=== PATIENT | female | born 1980 | race Caucasian/White ===

== ENCOUNTER 2020-09-09 16:46 | Emergency (ER) | payer SELFPAY ==
--- NOTE | 2020-09-09 18:23 | EDPHYS ---
Physician Documentation [facility] Name: Yoanna Dyson Age: 40 yrs Sex: Female : 1980 Arrival Date: 09/09/2020 Time: 16:44 Bed 28 Private MD: DONTE Physician Tramaine Carvalho HPI: 09/09 17:55 This 40 yrs old Female presents to ER via Wheelchair with complaints of rn covid+. 17:55 The patient or guardian reports cough, difficulty breathing. Onset: The rn symptoms/episode began/occurred 1 week(s) ago. Severity of symptoms: At their worst the symptoms were moderate, in the emergency department the symptoms are unchanged. Modifying factors: The symptoms are alleviated by nothing, the symptoms are aggravated by nothing. Associated signs and symptoms: Pertinent negatives: chest pain, fever, vomiting. The patient has not experienced similar symptoms in the past. The patient has not recently seen a physician. Reports 1 to 2 weeks of feeling ill, multiple family members are Covid positive, G7, P6 at approximately 33 weeks by LMP, no care for this . Reports decreased movement over the last day or so. Seen in L\T\D today, Dr. Rothman called and states not in labor cervix closed and baby seems okay. Dr. Rothman recommends ER evaluation, Covid testing, and if Covid positive transfer to [facility] for Covid status and no care.. Historical: - Allergies: 17:39 No Known Allergies; kg - Home Meds: 17:39 None [Active]; kg - PMHx: 17:39 None; kg - PSHx: 17:39 None; kg - Immunization history:: Adult Immunizations up to date, Client reports having NOT received the Covid vaccine. - Social history:: Smoking status: . - Family history:: not pertinent. - Hospitalizations: : No recent hospitalization is reported. ROS: 17:55 Constitutional: Negative for chills, and weight loss Eyes: Negative for injury, pain, rn redness, and discharge, ENT: Negative for injury, pain, and discharge, Neck: Negative for injury, pain, and swelling, Cardiovascular: Negative for chest pain, palpitations, and edema, Respiratory: Positive for cough and shortness of breath Abdomen/GI: Negative for abdominal pain, nausea, vomiting, diarrhea, and constipation, Back: Negative for injury and pain, MS/Extremity: Negative for injury and deformity, Skin: Negative for injury, rash, and discoloration, Neuro: Negative for headache, numbness, tingling, and seizure. Exam: 17:55 Constitutional: This is a well developed, well nourished patient who is awake, alert, rn moderate tachypnea, appears weak in general Head/Face: Normocephalic, atraumatic. Eyes: Sunken eyes ENT: Dry mucous membranes, no stridor Cardiovascular: Tachycardic, regular.. No pulse deficits. Respiratory: Moderate tachypnea, diminished breath sounds bilateral bases. Abdomen/GI: Soft, nontender Skin: Warm, dry MS/ Extremity: Pulses equal, no cyanosis. Neurovascular intact. Full, normal range of motion. Equal circumference. Neuro: Awake and alert, GCS 15, oriented to person, place, time, and situation. Cranial nerves II-XII grossly intact. Motor strength 4/5 in all extremities. Sensory grossly intact. Vital Signs: 17:29 BP 129 / 86; Pulse 99; Resp 39; Temp 98.2(O); Pulse Ox 89% on R/A; Weight 94.8 kg (R); kg Height 5 ft. 7 in. (170.18 cm); Pain 4/10; 18:20 BP 129 / 80; Pulse 92; Resp 38; Pulse Ox 97% on 2 lpm NC; vg1 18:30 BP 125 / 88; Pulse 88; Resp 38; Pulse Ox 98% on 2 lpm NC; vg1 19:30 BP 113 / 53; Pulse 94; Resp 30; Pulse Ox 95% on R/A; vg1 20:00 BP 114 / 66; Pulse 94; Resp 30; Pulse Ox 93% on R/A; vg1 20:30 BP 109 / 62; Pulse 91; Resp 32; Pulse Ox 95% on R/A; vg1 21:00 BP 120 / 65; Pulse 97; Resp 32; Pulse Ox 95% on R/A; vg1 21:30 BP 119 / 67; Pulse 96; Resp 30; Pulse Ox 95% on 2 lpm NC; vg1 23:02 BP 122 / 71; Pulse 90; Resp 39; Pulse Ox 96% on 2 lpm NC; ld1 09/10 01:00 BP 132 / 76; Pulse 91; Resp 34 S; Pulse Ox 96% on R/A; em 03:00 BP 118 / 69; Pulse 88; Resp 30; Pulse Ox 93% on R/A; em 05:00 BP 119 / 74; Pulse 90; Resp 32; Pulse Ox 94% on R/A; em 07:00 BP 105 / 63; Pulse 82; Resp 20; Pulse Ox 93% on R/A; em 09/09 17:29 Body Mass Index 32.73 (94.80 kg, 170.18 cm) kg MDM: 09/09 17:52 Patient medically screened. rn 18:21 Differential Diagnosis: Viral Syndrome Pneumonia Other Covid. Data reviewed: vital rn signs, nurses notes, radiologic studies, plain films, and as a result, I will admit patient. Counseling: I had a detailed discussion with the patient and/or guardian regarding: the historical points, exam findings, and any diagnostic results supporting the discharge/admit diagnosis, radiology results, the need to transfer to another facility, for higher level of care, [facility] does not immediately have the required specialist. Response to treatment: the patient's symptoms have mildly improved after treatment, and as a result, I will admit patient. Admission orders: after a detailed discussion of the patient's condition and case, the admit orders are written by me. 18:26 ED course: Patient evaluated by Dr. Rothman who states patient not in labor cervix rn closed.. 18:37 ED course: Attempted transfer to [facility] prior to results, [place] at saturation and unable rn to accommodate transfer.. 18:55 Transition of care: After a detail discussion of the patient's case, care is rn transferred to Kamryn Lopez MD. 09/10 05:10 ED course: In terms is improved, she has mild cough, however saturation is 96 on room ma2 air, given the offer to go home, versus continued transfer, patient wants to go home. Given return precaution, she will check her oxygen at home. 06:16 ED course: Sent order for home oxygen to be delivered this morning, patient may stay in ma2 the ER until home oxygen is arranged, to receive 2 L oxygen via nasal cannula, currently saturation is 94 on room air, may go down to 90 when she ambulate.. 07:47 Patient medically screened. [facility] 09/09 17:54 Order name: CBC with Diff rn 09/09 17:54 Order name: Basic Metabolic Panel rn 09/09 17:54 Order name: Procalcitonin; Complete Time: 21:16 rn 09/09 17:54 Order name: Ferritin; Complete Time: 21:16 rn 09/09 17:54 Order name: CRP; Complete Time: 21:16 rn 09/09 17:54 Order name: Blood Culture Adult (2) rn 09/09 17:54 Order name: XRAY Chest (1 view); Complete Time: 18:42 rn 09/09 17:55 Order name: CBC with Automated Diff; Complete Time: 21:16 EDMS 09/09 17:55 Order name: Basic Metabolic Panel; Complete Time: 21:16 EDMS 09/09 19:55 Order name: Manual Differential EDMS 09/09 20:09 Order name: SARS-COV-2 RT PCR; Complete Time: 21:16 EDMS 09/09 17:54 Order name: IV Start; Complete Time: 18:48 rn 09/09 17:55 Order name: Cardiac monitoring; Complete Time: 18:48 rn 09/09 17:55 Order name: O2 Sat Monitoring; Complete Time: 18:05 rn 09/09 17:55 Order name: O2 Per Protocol; Complete Time: 18:05 rn 09/09 17:55 Order name: Heart Tones; Complete Time: 21:24 rn 09/09 18:25 Order name: Misc. Order: Place patient on high flow O2; Complete Time: 18:28 rn Administered Medications: 09/09 18:45 Drug: SOLU-Medrol (methylPrednisoLONE) 125 mg Route: IVP; Site: left antecubital; vg1 19:55 Follow up: Response: No adverse reaction vg1 18:48 Drug: NS 0.9% 500 ml Route: IV; Rate: bolus; Site: left antecubital; vg1 19:55 Follow up: IV Status: Completed infusion; IV Intake: 500ml vg1 21:33 Drug: Tylenol 1000 mg Route: PO; vg1 09/10 08:10 Drug: Decadron - Dexamethasone 4 mg Route: IVP; Site: left antecubital; tr6 Disposition Summary: 09/10/20 07:51 Transfer Ordered Transfer Location: [facility](09/10/20 07:51) annette Reason: Higher level of care(09/10/20 07:51) annette Condition: Fair(09/10/20 07:51) annette Problem: new(09/10/20 07:51) annette Symptoms: have improved(09/10/20 07:51) annette Accepting Physician: to adan , ob, dr cabrera(09/10/20 09:41) iw Diagnosis - Other viral pneumonia - covid pneumonia annette - 33 weeks gestation of annette - Hypoxemia(09/10/20 07:51) annette Forms: - Medication Reconciliation Form annette - SBAR form annette Signatures: Dispatcher [employer] EDMS Tramaine Carvalho MD MD cha Williams, Irene, RN RN iw Dany Olmstead MD MD rn Alzahri, Mohammad, MD MD ma2 Isela Anna, RN RN vg1 Carol Ortiz, RN RN tr6 Shantell Cervantes, RN RN kg Corrections: (The following items were deleted from the chart) 09/09 18:40 18:23 DrShelby rn rn 18:40 18:23 [facility] rn rn 18:40 18:23 Higher level of care rn rn 18:40 18:23 Stable rn rn 18:40 18:23 new rn rn 18:40 18:23 have improved rn rn 18:40 18:23 Pneumonia due to SARS-associated coronavirus rn rn 18:40 18:23 Hypoxemia rn rn 19:18 17:55 CORONAVIRUS+MR.LAB.BRZ ordered. [facility] 09/10 07:47 05:11 Home [facility] annette 07:47 05:[address] 07:47 05:11 Other specified viral diseases - COVID 19 ms2 [facility] 09:41 07:51 to adan , obdr cabrera annette iw
--- NOTE | 2020-09-09 18:23 | ER ---
Nurse's Notes [facility] Name: Yoanna Dyson Age: 40 yrs Sex: Female : 1980 Arrival Date: 09/09/2020 Time: 16:44 Bed 28 Private MD: Diagnosis: Other viral pneumonia-covid pneumonia;33 weeks gestation of ;Hypoxemia Presentation: 09/09 17:29 Chief complaint: Patient states: SOB x 2 wks, cough, chills and decrease movement in kg baby and em knapp. Pt is 33wks and was evaluated in L\T\ D and cleared to be evaluated in the ER for her symptoms. Pt was diagnosed with COVID 09/02. Chief complaint:. Coronavirus screen: Client denies travel out of the [place] in the last 14 days. At this time, unable to obtain information related to travel outside the [place] Client presents with at least one sign or symptom that may indicate coronavirus-19. Standard/surgical mask placed on the client. Provider contacted for isolation considerations. Ebola Screen: Patient negative for fever greater than or equal to 101.5 degrees Fahrenheit, and additional compatible Ebola Virus Disease symptoms Patient denies exposure to infectious person. Patient denies travel to an Ebola-affected area in the 21 days before illness onset. Initial Sepsis Screen: Does the patient meet any 2 criteria? No. Patient's initial sepsis screen is negative. Does the patient have a suspected source of infection? No. Patient's initial sepsis screen is negative. Risk Assessment: Do you want to hurt yourself or someone else? Patient reports no desire to harm self or others. Onset of symptoms was August 26, 2020. 17:29 Method Of Arrival: Wheelchair kg 17:29 Acuity: DEMI 2 ss Triage Assessment: 17:39 General: Appears distressed, uncomfortable, Behavior is cooperative, appropriate for kg age. Pain: Complains of pain in face Pain radiates to Generalized Pain currently is 5 out of 10 on a pain scale. at worst was 7 out of 10 on a pain scale. Historical: - Allergies: 17:39 No Known Allergies; kg - Home Meds: 17:39 None [Active]; kg - PMHx: 17:39 None; kg - PSHx: 17:39 None; kg - Immunization history:: Adult Immunizations up to date, Client reports having NOT received the Covid vaccine. - Social history:: Smoking status: . - Family history:: not pertinent. - Hospitalizations: : No recent hospitalization is reported. Screenin:42 Abuse screen: Denies threats or abuse. Denies injuries from another. Nutritional kg screening: No deficits noted. Tuberculosis screening: No symptoms or risk factors identified. Fall Risk None identified. Assessment: 17:47 Reassessment: provider at bedside at this time. tw2 18:27 Reassessment: Called Respiratory, per Dr Olmstead, to place patient on High Flow O2 due to vg1 respirations of 40. 18:30 General: Appears in no apparent distress. uncomfortable, Behavior is calm, cooperative. vg1 Pain: Complains of pain in head and back Pain currently is 3 out of 10 on a pain scale. Pain began about a week in a half ago. Neuro: Level of Consciousness is awake, alert, obeys commands, Oriented to person, place, time, situation. Cardiovascular: Patient's skin is warm and dry. Respiratory: Reports shortness of breath on exertion cough that is dry, Airway is patent Respiratory effort is even, labored, Respiratory pattern is tachypnea Breath sounds are clear bilaterally. GI: No signs and/or symptoms were reported involving the gastrointestinal system. : No signs and/or symptoms were reported regarding the genitourinary system. EENT: No signs and/or symptoms were reported regarding the EENT system. Derm: Skin is intact, is healthy with good turgor. Musculoskeletal: Circulation, motion, and sensation intact. 19:52 Reassessment: Patient appears in no apparent distress at this time. No changes from vg1 previously documented assessment. Patient and/or family updated on plan of care and expected duration. Pain level reassessed. Patient is alert, oriented x 3, equal unlabored respirations, skin warm/dry/pink. 21:15 Reassessment: Patient appears in no apparent distress at this time. No changes from vg1 previously documented assessment. Patient and/or family updated on plan of care and expected duration. Pain level reassessed. Patient is alert, oriented x 3, equal unlabored respirations, skin warm/dry/pink. Pt states headache, pain 6/10; provider notified. 21:25 Reassessment: Received VO from Dr Lopez to administer Tylenol 1 gram PO x1. vg1 21:33 Reassessment: Patient stated was hungry, requested Ensure. Tolerated beverage well. vg1 22:12 Reassessment: Assisted pt to bedside toilet; voided 350 mL, urine was anisha in color. vg1 Pt stated felt winded; applied oxygen of 2 L NC. O2 95% respirations 36. Water pitcher at bedside, call light at bedside. 23:02 Reassessment: Patient appears in no apparent distress at this time. No changes from ld1 previously documented assessment. Patient and/or family updated on plan of care and expected duration. Pain level reassessed. Patient is alert, oriented x 3, equal unlabored respirations, skin warm/dry/pink. 09/10 04:08 Reassessment: Patient appears in no apparent distress at this time. Patient and/or em family updated on plan of care and expected duration. Pain level reassessed. Patient is alert, oriented x 3, equal unlabored respirations, skin warm/dry/pink. Vital Signs: 09/09 17:29 BP 129 / 86; Pulse 99; Resp 39; Temp 98.2(O); Pulse Ox 89% on R/A; Weight 94.8 kg (R); kg Height 5 ft. 7 in. (170.18 cm); Pain 4/10; 18:20 BP 129 / 80; Pulse 92; Resp 38; Pulse Ox 97% on 2 lpm NC; vg1 18:30 BP 125 / 88; Pulse 88; Resp 38; Pulse Ox 98% on 2 lpm NC; vg1 19:30 BP 113 / 53; Pulse 94; Resp 30; Pulse Ox 95% on R/A; vg1 20:00 BP 114 / 66; Pulse 94; Resp 30; Pulse Ox 93% on R/A; vg1 20:30 BP 109 / 62; Pulse 91; Resp 32; Pulse Ox 95% on R/A; vg1 21:00 BP 120 / 65; Pulse 97; Resp 32; Pulse Ox 95% on R/A; vg1 21:30 BP 119 / 67; Pulse 96; Resp 30; Pulse Ox 95% on 2 lpm NC; vg1 23:02 BP 122 / 71; Pulse 90; Resp 39; Pulse Ox 96% on 2 lpm NC; ld1 09/10 01:00 BP 132 / 76; Pulse 91; Resp 34 S; Pulse Ox 96% on R/A; em 03:00 BP 118 / 69; Pulse 88; Resp 30; Pulse Ox 93% on R/A; em 05:00 BP 119 / 74; Pulse 90; Resp 32; Pulse Ox 94% on R/A; em 07:00 BP 105 / 63; Pulse 82; Resp 20; Pulse Ox 93% on R/A; em 09/09 17:29 Body Mass Index 32.73 (94.80 kg, 170.18 cm) kg Vitals: 09/09 21:24 Heart Tones 149. vg1 ED Course: 16:44 Patient arrived in ED. am2 17:39 Triage completed. kg 17:42 Patient has correct armband on for positive identification. kg 17:52 Dany Olmstead MD is Attending Physician. rn 18:04 Isela Anna RN is Primary Nurse. vg1 18:33 XRAY Chest (1 view) In Process Unspecified. EDMS 18:37 initiated transfer to [facility] OB, pt was deferred to medicine by ob credit administration specialist, pt was bd declined by [facility] due to hospital being at capacity, per Marcel. 18:37 Inserted saline lock: 20 gauge in left antecubital area, using aseptic technique. Blood vg1 collected. 18:37 Initial lab(s) drawn, by me, sent to lab. First set of blood cultures drawn. vg1 18:49 COVID swab sent to lab. vg1 18:51 Arm band placed on. vg1 18:55 Second set of blood cultures drawn by me. vg1 20:[address] [facility] with Lucille. Stated they do not take pts over 20 weeks tt3 so the transfer request would be denied. 20:50 Faxed pt chart and demographics to [facility] to initiate transfer. Information passed on to tt3 Dr. Lopez. 20:58 Initiated transfer at [facility] with Kim. Stated she would check with the house tt3 finishing supervisor and call back. 21:23 Kim called back and stated that [facility] is at capacity per the house mover supervisor. tt3 Stated that all other campuses are at capacity. 21:50 Called [facility] to initiate transfer. Spoke with Rito. Before taking any info, she tt3 stated that they have no beds available. 21:[address] [facility] with Nargis Mack. Stated she would do a bed tt3 check and call back. 22:08 Nargis called back and stated that they would have to deny due to capacity. tt3 22:17 Report given to DHIRAJ Villa. vg1 23:[address] pt on a wait list at [facility] per Charge Nurse directions. Spoke with tt3 Fatimah at [facility] and was informed that due to clearance the pt would go to med and not ob services and that they are at saturation for med surg, tele and icu. Stated also that they do not have a wait list for pts. Information passed on to Conrado Estevez, RN, Charge Nurse. 09/10 07:46 Attending Physician role handed off by Dany Olmstead MD cha 07:46 Tramaine Carvalho MD is Attending Physician. [facility] Administered Medications: 09/09 18:45 Drug: SOLU-Medrol (methylPrednisoLONE) 125 mg Route: IVP; Site: left antecubital; vg1 19:55 Follow up: Response: No adverse reaction vg1 18:48 Drug: NS 0.9% 500 ml Route: IV; Rate: bolus; Site: left antecubital; vg1 19:55 Follow up: IV Status: Completed infusion; IV Intake: 500ml vg1 21:33 Drug: Tylenol 1000 mg Route: PO; vg1 09/10 08:10 Drug: Decadron - Dexamethasone 4 mg Route: IVP; Site: left antecubital; tr6 Intake: 09/09 19:55 IV: 500ml; Total: 500ml. vg1 Outcome: 18:23 ER care complete, transfer ordered by . dhiraj 09/10 05:[address] [facility] 07:51 ER care complete, transfer ordered by . [facility] 09:41 Patient left the ED. iw Signatures: Dispatcher [employer] EDMS Leela Blevins Corey, MD MD cha Munoz, Edgar, RN RN em Williams, Irene, RN RN Dany Olmstead MD MD rn Smirch, Shelby, RN RN ss Wise, Tara, RN RN 2 Thuy Skinner Mohammad, MD MD ma2 Garcia, Victoria, RN RN 1 Reuben Ortiz tt3 Daisy Lnogoria RN RN 1 Carol Ortiz RN RN tr6 Shantell Cervantes RN RN kg Corrections: (The following items were deleted from the chart) 09/09 17:39 17:29 Acuity: DEMI 3 kg ss 18:49 18:27 Reassessment: Called Respiratory to place patient on High Flow O2 due to vg1 respirations of 40 vg1 09/10 05:53 05:00 BP 119 / 74; Pulse 90bpm; Resp 16bpm; Pulse Ox 94% RA; em em
--- NOTE | 2020-09-09 18:39 | RAD REPORT ---
EXAM DESCRIPTION: RAD - Chest Single View - 09/09/2020 6:33 pm CLINICAL HISTORY: COUGH COMPARISON: No comparisons FINDINGS: Widespread bilateral airspace disease. Cardiomegaly No acute osseous abnormality. Difficul t to exclude a small left effusion. IMPRESSION: Moderate bilateral airspace disease could reflect multifocal pneumonia, including Covid- 19, and/or pulmonary edema.
[2020-09-09] MEDS ORDERED: NA CHLORIDE 0.9% 500 ML ONE (18:41)
[2020-09-09] MEDS ORDERED: METHYLPREDNISOLONE 125 MG INJ ONE (18:51)
[2020-09-09 18:56] LABS: Basophils % 0.2 % (0-1.3); Hematocrit 40.4 % (36.0-45.0); Lymphocytes % 6.7 % (15.3-44.8); MPV 7.6 fL (7.6-11.3); RBC Red Blood Cell Count 4.94 M/uL (3.86-4.86)
[2020-09-09 19:28] LABS: BUN Blood Urea Nitrogen 11 mg/dL (7-18); Bicarbonate 18 mmol/L (21-32); Glucose Level 83 mg/dL (74-106); Potassium 3.9 mmol/L (3.5-5.1); Sodium Level 133 mmol/L (136-145)
[2020-09-09 19:55] LABS: Blood Morphology Comment NOT SEEN (NOT SEEN); Platelet Estimate ADEQ
[2020-09-09] MEDS ORDERED: ACETAMINOPHEN 500 MG TAB ONE (21:51)
[2020-09-10] MEDS ORDERED: dexAMETHasone 4 MG/ML VIAL ONE (08:20)
[2020-09-10 20:38] VITALS: TEMP 98.2
[2020-09-10 20:59] VITALS: BP 105/63; O2SAT 93
== END 2020-09-10 09:41 | disposition short-term general hospital (02) ==
LOC: ER 16:46
DX: O98.513 Other viral diseases complicating pregnancy, third trimester (principal); U07.1 COVID-19; O99.513 Diseases of the respiratory system complicating pregnancy, third trimester; J12.82 Pneumonia due to coronavirus disease 2019; Z3A.33 33 weeks gestation of pregnancy
CPT/HCPCS: 36415; 71045; 80048; 82728; 84145; 85025; 86140; 87040; 96361; 96374; 96375; 99284; J1100; J2930; J7040; U0003